=== PATIENT | female | born 1970 | race Caucasian/White ===

== ENCOUNTER 2024-12-20 13:49 | Inpatient (IN) | payer OTHER ==
[~2024-12-20] VITALS: Ht 167.6 cm; Wt 116.2 kg
[2024-12-20 14:22] LABS: PLATELET COUNT (AUTO) 386 K/uL (150-450); RED BLOOD CELL COUNT(AUTO) 5.19 MIL/uL (4.00-5.20); RED CELL DISTRIBUTION WIDTH 12.9 % (11.5-14.5); WHITE BLOOD COUNT (AUTO) 19.7 K/uL (4.5-11.0)
[2024-12-20] MEDS ORDERED: AMLO-257 PO (14:27)
[2024-12-20] MEDS ORDERED: HYDR25TA2 PO (14:27)
[2024-12-20] MEDS ORDERED: PARO10TA89 PO (14:27)
[2024-12-20] MEDS ORDERED: SEMA2PEN SQ (14:27)
[2024-12-20] MEDS ORDERED: LISI-894 PO (14:27)
[2024-12-20] MEDS ORDERED: ATOR10TA PO (14:27)
[2024-12-20] MEDS ORDERED: METF-1211 PO (14:27)
[2024-12-20 14:35] LABS: CALCIUM, TOTAL 9.1 mg/dL (8.8-10.5); CREATININE 1.03 mg/dL (0.60-1.30); GLOMERULAR FILTR. RATE CALC 56.0 mL/min (>60); GLUCOSE,RANDOM 263.0 mg/dL (70-110); SODIUM SERUM 140.0 mmol/L (136-145); UREA NITROGEN, BLOOD 23.0 mg/dL (7-18)
[2024-12-20 14:39] LABS: ASPARTATE AMINOTRANSFERASE 262 U/L (15-37); TOTAL PROTEIN, SERUM 7.9 g/dL (6.4-8.2)
[2024-12-20 14:40] LABS: GLUCOMETER DEV NAME(LOC) ERT.7; GLUCOSE,POINT OF CARE 253 MG/DL (70-110)
[2024-12-20 15:11] LABS: ALCOHOL, BLOOD (SERUM) < 3 mg/dL (0-10)
[2024-12-20 15:27] LABS: APPEARANCE,URINE HAZY (CLEAR); GLUCOSE, URINE (UA) >=1000 mg/dL (NEGATIVE); LEUKOCYTE ESTERASE ,URINE NEGATIVE (NEGATIVE); NITRATE,URINE NEGATIVE (NEGATIVE); OCCULT BLOOD,URINE LARGE (NEGATIVE); PH,URINE DRUG SCREEN 6.0 (5.0-8.0); SPECIFIC GRAVITIY, URINE 1.026 (1.003-1.030)
[2024-12-20 15:33] LABS: ALCOHOL, URINE DRUG SCREEN NEGATIVE (NEGATIVE); AMPHET/METH SCREEN,URINE NEGATIVE (NEGATIVE); BARBITURATE SCREEN, URINE NEGATIVE (NEGATIVE); CANNABINOID SCREEN,URINE POSITIVE (NEGATIVE); COCAINE SCREEN,URINE NEGATIVE (NEGATIVE); METHADONE SCREEN, URINE NEGATIVE (NEGATIVE)
[2024-12-20 15:53] LABS: SQUAMOUS EPITHELIAL CELL,UR Few /LPF (None Seen); SULFOSALICYLIC ACID,URINE 2+ (Negative)
[2024-12-20] MEDS: MAGNESIUM SULFATE 1 GM in DEXTROSE 5%-WATER 50 ML IV ONE (15:56)
[2024-12-20 19:01] LABS: ASPARTATE AMINOTRANSFERASE 270.0 U/L (15-37); TOTAL PROTEIN, SERUM 8.2 g/dL (6.4-8.2)
[2024-12-20 19:02] LABS: CREATINE KINASE, TOTAL ONLY 12644.0 U/L (26-192)
[2024-12-20] MEDS: SODIUM CHLORIDE 0.9% 1,000 ML IV ONE (19:33)
[2024-12-20] MEDS: LABETALOL HCL 5 MG/ML 20 ML VIAL IVP ONE (21:24)
[2024-12-20] MEDS ORDERED: BISACODYL 10 MG RECTAL RECTAL SUPPOSITORY PR PRN (21:45)
[2024-12-20] MEDS ORDERED: MORPHINE SULFATE 4 MG/ML SYRINGE IVP PRN (21:45)
[2024-12-20] MEDS ORDERED: ONDANSETRON HCL 4 MG/2 ML VIAL IVP PRN (21:45)
[2024-12-20] MEDS ORDERED: MAGNESIUM HYDROXIDE SUSPENSION 30 ML UDCUP PO PRN (21:45)
[2024-12-20] MEDS ORDERED: HYDROCODONE/ACETAMINOPHEN 5-325 MG TABLET PO PRN (21:45)
[2024-12-20 23:18] VITALS: BP 168/102; PULSE 108; RESP 19; TEMP 98.4; O2SAT 97
[2024-12-21] MEDS: HEPARIN SODIUM,PORCINE 5,000 UNITS/ML VIAL SQ SCH
[2024-12-21] MEDS: ZOLPIDEM TARTRATE 5 MG TABLET PO PRN (01:11)
[2024-12-21] MEDS: SODIUM CHLORIDE 0.9% 1,000 ML IV SCH (01:40)
[2024-12-21 01:46] VITALS: BP 152/91
[2024-12-21 02:48] LABS: COVID AG,FIA SOURCE NASAL SWAB
[2024-12-21 03:05] LABS: SARS-COV2 (COVID) ANTIGEN,FIA Negative (Negative)
[2024-12-21 05:28] VITALS: BP 172/96; PULSE 111; RESP 19; TEMP 98.4; O2SAT 97
[2024-12-21 07:23] VITALS: BP 136/61; PULSE 116; RESP 20; TEMP 99; O2SAT 95
[2024-12-21 07:34] LABS: PLATELET COUNT (AUTO) 371 K/uL (150-450); RED BLOOD CELL COUNT(AUTO) 4.84 MIL/uL (4.00-5.20); RED CELL DISTRIBUTION WIDTH 13.0 % (11.5-14.5); WHITE BLOOD COUNT (AUTO) 18.4 K/uL (4.5-11.0)
[2024-12-21 07:41] LABS: CALCIUM, TOTAL 8.5 mg/dL (8.8-10.5); CREATININE 0.75 mg/dL (0.60-1.30); GLOMERULAR FILTR. RATE CALC > 60 mL/min (>60); GLUCOSE,RANDOM 195 mg/dL (70-110); SODIUM SERUM 140 mmol/L (136-145); UREA NITROGEN, BLOOD 16 mg/dL (7-18)
[2024-12-21 07:42] LABS: ASPARTATE AMINOTRANSFERASE 237.0 U/L (15-37); TOTAL PROTEIN, SERUM 7.5 g/dL (6.4-8.2)
[2024-12-21] MEDS: ATORVASTATIN CALCIUM 10 MG TABLET PO SCH (08:38)
[2024-12-21] MEDS: PANTOPRAZOLE SODIUM 40 MG DR TABLET PO SCH (08:38)
[2024-12-21] MEDS: DOCUSATE SODIUM 100 MG CAPSULE PO SCH (08:38)
[2024-12-21 10:36] LABS: GLUCOMETER DEV NAME(LOC) 5S.1E; GLUCOSE,POINT OF CARE 205 MG/DL (70-110)
[2024-12-21 11:52] VITALS: BP 146/84; PULSE 120; RESP 19; TEMP 98.4; O2SAT 98
[2024-12-21] MEDS ORDERED: SODIUM CHLORIDE 0.9% 1,000 ML IV ONE (12:00)
[2024-12-21] MEDS ORDERED: POTASSIUM CHL 10 MEQ/WATER 50 ML IV PRN (12:00)
[2024-12-21] MEDS: POTASSIUM CHLORIDE 20 MEQ ER TABLET PO PRN (13:08)
[2024-12-21 16:08] VITALS: BP 140/88; PULSE 117; RESP 19; TEMP 98.6; O2SAT 97
[2024-12-21 20:19] VITALS: BP 149/94; PULSE 118; RESP 19; TEMP 99; O2SAT 96
[2024-12-22 00:32] VITALS: PULSE 105
[2024-12-22 05:00] VITALS: BP 151/94; PULSE 107; RESP 19; TEMP 98.4; O2SAT 98
[2024-12-22 08:00] VITALS: BP 139/90; PULSE 111; RESP 19; TEMP 98.5; O2SAT 96
[2024-12-22 10:27] LABS: PLATELET COUNT (AUTO) 318 K/uL (150-450); RED BLOOD CELL COUNT(AUTO) 4.62 MIL/uL (4.00-5.20); RED CELL DISTRIBUTION WIDTH 13.0 % (11.5-14.5); WHITE BLOOD COUNT (AUTO) 10.6 K/uL (4.5-11.0)
[2024-12-22 10:33] LABS: CALCIUM, TOTAL 8.6 mg/dL (8.8-10.5); CREATININE 0.58 mg/dL (0.60-1.30); GLOMERULAR FILTR. RATE CALC > 60 mL/min (>60); GLUCOSE,RANDOM 214 mg/dL (70-110); SODIUM SERUM 137 mmol/L (136-145); UREA NITROGEN, BLOOD 12 mg/dL (7-18)
[2024-12-22 11:45] VITALS: BP 150/90; PULSE 107; RESP 20; TEMP 98.8; O2SAT 97
[2024-12-22] MEDS ORDERED: DEXTROSE 50%-WATER 25 GM/50 ML SYRINGE IVP PRN (14:00)
[2024-12-22 15:56] VITALS: BP 145/90; PULSE 114; RESP 19; TEMP 98.4; O2SAT 96
[2024-12-22] MEDS: INSULIN LISPRO 100 UNITS/ML SQ PRN (18:05)
[2024-12-22 19:21] VITALS: BP 143/87; PULSE 118; RESP 19; TEMP 98.6; O2SAT 98
[2024-12-23 03:11] VITALS: BP 144/95; PULSE 110; RESP 19; TEMP 97.7; O2SAT 98
[2024-12-23 06:57] LABS: CALCIUM, TOTAL 8.9 mg/dL (8.8-10.5); CREATININE 0.86 mg/dL (0.60-1.30); GLOMERULAR FILTR. RATE CALC > 60 mL/min (>60); GLUCOSE,RANDOM 218 mg/dL (70-110); SODIUM SERUM 132 mmol/L (136-145); UREA NITROGEN, BLOOD 12 mg/dL (7-18)
[2024-12-23 06:58] LABS: PLATELET COUNT (AUTO) 359 K/uL (150-450); RED BLOOD CELL COUNT(AUTO) 4.79 MIL/uL (4.00-5.20); RED CELL DISTRIBUTION WIDTH 13.2 % (11.5-14.5); WHITE BLOOD COUNT (AUTO) 10.4 K/uL (4.5-11.0)
[2024-12-23 07:53] VITALS: BP 161/99; PULSE 112; RESP 19; TEMP 98; O2SAT 97
[2024-12-23] MEDS ORDERED: MAGNESIUM SULFATE 2 GM/WATER 50 ML IV PRN (10:15)
[2024-12-23] MEDS ORDERED: MAGNESIUM SULFATE 4 GM/WATER 100 ML IV PRN (10:15)
[2024-12-23 11:11] VITALS: BP 141/89; PULSE 109; RESP 18; TEMP 98.4; O2SAT 98
[2024-12-23 11:33] LABS: ASPARTATE AMINOTRANSFERASE 152.0 U/L (15-37)
[2024-12-23] MEDS: MAGNESIUM OXIDE 400 MG TABLET PO PRN (12:22)
[2024-12-23] MEDS: POTASSIUM CHLORIDE 20 MEQ ER TABLET PO ONE (12:22)
[2024-12-23 16:23] VITALS: BP 144/97; PULSE 105; RESP 19; TEMP 98.2; O2SAT 98
[2024-12-23 20:16] VITALS: BP 138/89; PULSE 105; RESP 19; TEMP 98.4; O2SAT 96
[2024-12-23] MEDS: ACETAMINOPHEN 325 MG TABLET PO PRN (20:26)
[2024-12-23 22:56] LABS: GLUCOMETER DEV NAME(LOC) 5N.1D; GLUCOSE,POINT OF CARE 213 MG/DL (70-110)
[2024-12-23 22:56] LABS: GLUCOMETER DEV NAME(LOC) 5N.1D; GLUCOSE,POINT OF CARE 240 MG/DL (70-110)
[2024-12-23 22:56] LABS: GLUCOMETER DEV NAME(LOC) 5N.1D; GLUCOSE,POINT OF CARE 211 MG/DL (70-110)
[2024-12-23 22:56] LABS: GLUCOMETER DEV NAME(LOC) 5N.1D; GLUCOSE,POINT OF CARE 210 MG/DL (70-110)
[2024-12-23 22:56] LABS: GLUCOMETER DEV NAME(LOC) 5N.1D; GLUCOSE,POINT OF CARE 245 MG/DL (70-110)
[2024-12-23 23:46] LABS: GLUCOMETER DEV NAME(LOC) 5S.1E; GLUCOSE,POINT OF CARE 205 MG/DL (70-110)
[2024-12-23 23:56] VITALS: BP 150/95; PULSE 105; RESP 20; TEMP 98.1; O2SAT 95
[2024-12-24 03:32] VITALS: BP 152/104; PULSE 110; RESP 18; TEMP 98.1; O2SAT 96
[2024-12-24 06:05] LABS: GLUCOMETER DEV NAME(LOC) 5S.1E; GLUCOSE,POINT OF CARE 183 MG/DL (70-110)
[2024-12-24 06:06] LABS: PLATELET COUNT (AUTO) 346 K/uL (150-450); RED BLOOD CELL COUNT(AUTO) 4.79 MIL/uL (4.00-5.20); RED CELL DISTRIBUTION WIDTH 13.0 % (11.5-14.5); WHITE BLOOD COUNT (AUTO) 8.9 K/uL (4.5-11.0)
[2024-12-24 06:14] LABS: CALCIUM, TOTAL 8.8 mg/dL (8.8-10.5); CREATININE 0.63 mg/dL (0.60-1.30); GLOMERULAR FILTR. RATE CALC > 60 mL/min (>60); GLUCOSE,RANDOM 199 mg/dL (70-110); SODIUM SERUM 141 mmol/L (136-145); UREA NITROGEN, BLOOD 9 mg/dL (7-18)
[2024-12-24 08:00] VITALS: BP 146/80; PULSE 100; RESP 17; TEMP 98; O2SAT 96
[2024-12-24 12:01] VITALS: BP 122/84; PULSE 102; RESP 18; TEMP 97.7; O2SAT 97
[2024-12-24 15:40] VITALS: BP 145/99; PULSE 105; RESP 17; TEMP 98.1; O2SAT 97
[2024-12-24 17:20] LABS: GLUCOMETER DEV NAME(LOC) 5S.1E; GLUCOSE,POINT OF CARE 207 MG/DL (70-110)
[2024-12-24 17:50] LABS: GLUCOMETER DEV NAME(LOC) 5N.1D; GLUCOSE,POINT OF CARE 159 MG/DL (70-110)
[2024-12-24 19:14] VITALS: BP 137/90; PULSE 103; RESP 18; TEMP 97.9; O2SAT 98
[2024-12-24 23:40] VITALS: BP 140/92; PULSE 97; RESP 17; TEMP 98.8; O2SAT 97
[2024-12-25 03:36] VITALS: BP 146/99; PULSE 110; RESP 19; TEMP 98.2; O2SAT 98
[2024-12-25 05:45] LABS: GLUCOMETER DEV NAME(LOC) 5N.1D; GLUCOSE,POINT OF CARE 173 MG/DL (70-110)
[2024-12-25 06:11] LABS: PLATELET COUNT (AUTO) 299 K/uL (150-450); RED BLOOD CELL COUNT(AUTO) 4.51 MIL/uL (4.00-5.20); RED CELL DISTRIBUTION WIDTH 12.8 % (11.5-14.5); WHITE BLOOD COUNT (AUTO) 6.7 K/uL (4.5-11.0)
[2024-12-25 07:00] LABS: GLUCOMETER DEV NAME(LOC) 5N.1D; GLUCOSE,POINT OF CARE 229 MG/DL (70-110)
[2024-12-25 07:02] LABS: CALCIUM, TOTAL 8.7 mg/dL (8.8-10.5); CREATININE 0.79 mg/dL (0.60-1.30); GLOMERULAR FILTR. RATE CALC > 60 mL/min (>60); GLUCOSE,RANDOM 281 mg/dL (70-110); SODIUM SERUM 136 mmol/L (136-145); UREA NITROGEN, BLOOD 10 mg/dL (7-18)
[2024-12-25 07:18] VITALS: BP 141/85; PULSE 101; RESP 18; TEMP 98.1; O2SAT 97
[2024-12-25] MEDS ORDERED: INSULIN LISPRO 100 UNITS/ML SQ PRN (11:45)
[2024-12-25] MEDS ORDERED: DEXTROSE 50%-WATER 25 GM/50 ML SYRINGE IVP PRN (11:45)
[2024-12-25] MEDS: INSULIN GLARGINE,HUM.REC.ANLOG 100 UNITS/ML SQ SCH (11:57)
[2024-12-25 12:24] VITALS: BP 142/95; PULSE 96; RESP 19; TEMP 97.3; O2SAT 99
[2024-12-25 15:42] VITALS: BP 96/71; PULSE 102; RESP 18; TEMP 97.7; O2SAT 92
[2024-12-25 20:21] VITALS: BP 142/93; PULSE 94; RESP 19; TEMP 98.1; O2SAT 97
[2024-12-25 20:30] LABS: GLUCOMETER DEV NAME(LOC) 5N.1D; GLUCOSE,POINT OF CARE 198 MG/DL (70-110)
[2024-12-25 20:30] LABS: GLUCOMETER DEV NAME(LOC) 5N.1D; GLUCOSE,POINT OF CARE 195 MG/DL (70-110)
[2024-12-25] MEDS ORDERED: IOHEXOL 350 MG/ML 100 ML VIAL ONE (20:32)
[2024-12-25] MEDS ORDERED: SODIUM CHLORIDE 0.9% 100 ML ONE (20:32)
[2024-12-25] MEDS ORDERED: 0.9% SODIUM CHLORIDE 10 ML SYRINGE IVP ONE (20:32)
[2024-12-25 23:45] VITALS: BP 152/91; PULSE 99; RESP 19; TEMP 97.9; O2SAT 97
[2024-12-26 02:16] LABS: GLUCOMETER DEV NAME(LOC) 5N.1D; GLUCOSE,POINT OF CARE 157 MG/DL (70-110)
[2024-12-26 03:45] VITALS: BP 145/95; PULSE 98; RESP 18; TEMP 97.5; O2SAT 94
[2024-12-26 06:45] LABS: PLATELET COUNT (AUTO) 309 K/uL (150-450); RED BLOOD CELL COUNT(AUTO) 4.68 MIL/uL (4.00-5.20); RED CELL DISTRIBUTION WIDTH 12.8 % (11.5-14.5); WHITE BLOOD COUNT (AUTO) 7.1 K/uL (4.5-11.0)
[2024-12-26 07:00] LABS: CALCIUM, TOTAL 8.6 mg/dL (8.8-10.5); CREATININE 0.71 mg/dL (0.60-1.30); GLOMERULAR FILTR. RATE CALC > 60 mL/min (>60); GLUCOSE,RANDOM 154 mg/dL (70-110); SODIUM SERUM 137 mmol/L (136-145); UREA NITROGEN, BLOOD 10 mg/dL (7-18)
[2024-12-26 07:28] VITALS: BP 150/99; PULSE 114; RESP 18; TEMP 98; O2SAT 96
[2024-12-26 11:32] VITALS: BP 151/96; PULSE 98; RESP 18; TEMP 98.2; O2SAT 96
[2024-12-26] MEDS ORDERED: CARV3 PO (12:23)
[2024-12-26] MEDS ORDERED: LINE600T14 PO (12:42)
[2024-12-26 12:51] LABS: GLUCOMETER DEV NAME(LOC) 5N.1D; GLUCOSE,POINT OF CARE 241 MG/DL (70-110)
[2024-12-26 12:51] LABS: GLUCOMETER DEV NAME(LOC) 5N.1D; GLUCOSE,POINT OF CARE 151 MG/DL (70-110)
[2024-12-26] MEDS: VANCOMYCIN 1.5 GM/WATER(PEG) 300 ML IV ONE (13:10)
== END 2024-12-26 14:40 | disposition home or self-care (01) | DRG 917 ==
LOC: EMS 13:49 → EDH 21:08 → 5S 22:46
PROVIDERS: ADMIT Internal Medicine; ATTEND Internal Medicine
DX: T50.992A Poisoning by other drugs, medicaments and biological substances, intentional self-harm, initial encounter (principal); G92.8 Other toxic encephalopathy; M62.82 Rhabdomyolysis; F33.2 Major depressive disorder, recurrent severe without psychotic features; I10 Essential (primary) hypertension; I16.0 Hypertensive urgency; F10.10 Alcohol abuse, uncomplicated; Y90.8 Blood alcohol level of 240 mg/100 ml or more; E78.5 Hyperlipidemia, unspecified; E87.6 Hypokalemia; E11.65 Type 2 diabetes mellitus with hyperglycemia; Z20.822 Contact with and (suspected) exposure to COVID-19; R00.0 Tachycardia, unspecified; F12.10 Cannabis abuse, uncomplicated; D72.829 Elevated white blood cell count, unspecified; Z79.899 Other long term (current) drug therapy; Z91.52 Personal history of nonsuicidal self-harm; Y92.89 Other specified places as the place of occurrence of the external cause
CPT/HCPCS: 70450; 71275; 80048; 80076; 80307; 81001; 81002; 82040; 82550; 82962; 83735; 84132; 84450; 84460; 85025; 85379; 87086; 87147; 92610; 93005; 96361; 96365; 97110; 97116; 97163; 97165; 97530; 97535; 99285; G0480; G0481; J0360; J1630; J1644; J1815; J3475; J3490; J7030; J7050; J7060; 36415-L1; 36415-TC